=== PATIENT | male | born 1970 | race Caucasian/White ===

== ENCOUNTER 2018-10-07 16:13 | Emergency (ER) | payer BC, OTHER ==
--- NOTE | 2018-10-07 16:16 | PDOC ---
History of Present Illness - General History Source: Patient Exam Limitations: No Limitations - History of Present Illness Initial Comments: 10/07/18 17:59 48 yo M with a hx of CAD (s/p 1x stent 2016), HTN, DM, and HLD presents to the emergency department with lower left back pain that has been ongoing for 3 days. Per the patient, he was lifting an approximate 100 lb device with another individual. Per the patient, he lifted with his back and denies lifting with his legs. He states he immediately felt a pulling sensation in his lower left back and had 10/10 pain. He took naproxen yesterday that did not relieve his pain. Denies the following: fever, chills, SOB, chest pain, nausea, vomiting, diarrhea, abdominal pain, visual disturbance, dysuria, hematuria, diarrhea, and leg pain/swelling. Allergies: NKDA Shx: None <Cristobal Corcoran - Last Filed: 10/07/18 17:57> <Tequila Ba - Last Filed: 10/07/18 18:45> - General Chief Complaint: Injury Stated Complaint: LEFT SIDED BACK PAIN Time Seen by Provider: 10/07/18 16:14 Past History - Past Medical History Anemia: No Asthma: No Cancer: No Cardiac Disorders: Yes ([place]) CVA: No COPD: No CHF: No Dementia: No Diabetes: Yes GI Disorders: Yes (HX OF COLON POLYP) Disorders: No HTN: No Hypercholesterolemia: Yes Liver Disease: No Seizures: No Thyroid Disease: No - Surgical History Abdominal Surgery: No Appendectomy: No Cardiac Surgery: Yes (CARDIAC STENT X1) Cholecystectomy: No Lung Surgery: No Neurologic Surgery: No Orthopedic Surgery: Yes (LT KNEE WITH TORN MENISCUS) - Suicide/Smoking/Psychosocial Hx Smoking History: Former smoker Have you smoked in the past 12 months: No Number of Cigarettes Smoked Daily: 2 If you are a former smoker, when did you quit?: 7 Hx Alcohol Use: Yes (DAILY WITH WINE) Drug/Substance Use Hx: No Substance Use Type: None <Cristobal Corcoran - Last Filed: 10/07/18 17:57> <Tequila Ba - Last Filed: 10/07/18 18:45> - Past Medical History Allergies/Adverse Reactions: Allergies Allergy/AdvReac Type Severity Reaction Status Date / Time No Known Allergies Allergy Verified 10/07/18 16:14 Home Medications: Ambulatory Orders Aspirin Coated [Ecotrin] 81 mg PO DAILY 12/04/11 Docosahexanoic Acid/Epa [Fish Oil Softgel] 1 each PO 12/04/11 Enalapril Maleate [Vasotec] 2.5 mg PO DAILY 12/04/11 Insulin (Levemir) [Levemir Flexpen] 20 units SQ DAILY 12/04/11 Insulin (Novolog) [Novolog Flexpen] 5 units SQ AC 12/04/11 Milk Thistle 240 mg PO DAILY 12/04/11 Omeprazole [Prilosec (RX)] 20 mg PO DAILY 12/04/11 Parsley/Garlic [Garlic & Parsley Softgel] 1 each PO DAILY 12/04/11 Vitamin B Complex 1 each PO DAILY 12/04/11 Review of Systems - Review of Systems Able to Perform ROS?: Yes Is the patient limited Syriac proficient: No Constitutional: No: Chills, Diaphoresis, Fever, Weakness HEENTM: No: Eye Pain, Ear Pain, Nose Pain, Throat Pain, Mouth Pain Respiratory: No: Cough, Shortness of Breath, Hemoptysis Cardiac (ROS): No: Chest Pain, Lightheadedness, Palpitations, Syncope, Chest Tightness ABD/GI: No: Abdominal Distended, Constipated, Diarrhea, Nausea, Rectal Bleeding , Vomiting, Tarry Stools : No: Burning, Dysuria, Hematuria, Incontinence Musculoskeletal: Yes: Back Pain. No: Joint Pain, Neck Pain Integumentary: No: Bruising, Erythema, Rash Neurological: No: Headache, Numbness, Tingling, Tremors Psychiatric: No: Change in Appetite Endocrine: No: Unexplained Weight Gain Hematologic/Lymphatic: No: Anemia <BacontonCristobal - Last Filed: 10/07/18 17:57> *Physical Exam - Physical Exam General Appearance: Yes: Nourished, Appropriately Dressed. No: Apparent Distress, Intoxicated HEENT: positive: EOMI, BING, Normal Voice, Symmetrical, Pharynx Normal, Hearing Grossly Normal. negative: Pale Conjunctivae, Scleral Icterus (R), Scleral Icterus (L), Muffled/Hoarse voice, Pharyngeal Erythema, Tonsillar Exudate, Tonsillar Erythema, Nasal Congestion, Rhinorrhea, Excessive drooling Neck: positive: Trachea midline, Supple. negative: Tender, Lymphadenopathy (R) , Lymphadenopathy (L), Tender lateral, Tender midline Respiratory/Chest: positive: Lungs Clear, Normal Breath Sounds. negative: Chest Tender, Respiratory Distress, Accessory Muscle Use, Crackles, Rales, Rhonchi, Stridor, Wheezing Cardiovascular: positive: Regular Rhythm, Regular Rate, S1, S2. negative: Systolic Murmur Gastrointestinal/Abdominal: positive: Normal Bowel Sounds, Flat, Soft. negative : Tender, Distended, Guarding, Rebound Lymphatic: negative: Adenopathy Musculoskeletal: positive: Normal Inspection, Other (tenderness to palpation in the left lumbar paraspinal region). negative: CVA Tenderness, Vertebral Tenderness Extremity: positive: Normal Capillary Refill, Normal Inspection, Normal Range of Motion. negative: Tender, Swelling, Calf Tenderness Integumentary: positive: Normal Color, Dry, Warm. 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 negative: EOM Palsy, Facial Droop , Numbness, Sensory Deficit <Cristobal Corcoran - Last Filed: 10/07/18 17:57> - Vital Signs Last Vital Signs Temp Pulse Resp BP Pulse Ox 98.1 F 62 18 155/95 100 10/07/18 16:13 10/07/18 16:13 10/07/18 16:13 10/07/18 16:13 10/07/18 16:13 <Tequila Ba - Last Filed: 10/07/18 18:45> ED Treatment Course - Medications Given in the ED: ED Medications Discontinued Medications Generic Name Dose Route Start Last Admin Trade Name Sagarq PRN Reason Stop Dose Admin Acetaminophen 1,000 mg 10/07/18 17:54 10/07/18 17:59 Tylenol - PO 10/07/18 17:55 1,000 mg ONCE ONE Administration Cyclobenzaprine HCl 10 mg 10/07/18 16:45 10/07/18 17:11 Cyclobenzaprine Hcl PO 10/07/18 16:46 10 mg ONCE ONE Administration Ketorolac Tromethamine 30 mg 10/07/18 16:45 10/07/18 17:15 Toradol Injection - IM 10/07/18 16:46 30 mg ONCE ONE Administration Lidocaine 1 patch 10/07/18 17:54 10/07/18 18:01 Lidoderm Patch - TP 10/07/18 17:55 1 patch ONCE ONE Administration <Tequila Ba - Last Filed: 10/07/18 18:45> Medical Decision Making - Medical Decision Making 10/07/18 18:10 48 yo M with a hx of CAD (s/p 1x stent 2016), HTN, DM, and HLD presents to the emergency department with lower left back pain that has been ongoing for 3 days. Initial vitals; Initial Vital Signs Temp Pulse Resp BP Pulse Ox 98.1 F 62 18 155/95 100 10/07/18 16:13 10/07/18 16:13 10/07/18 16:13 10/07/18 16:13 10/07/18 16:13 Work up: likely msk strain. neurological exam within normal limits. will provide toradol 30 mg, flexeril 10 mg, lidoderm patch, and tylenol 1000 mg. Likely to be discharged. patient is ambulatory throughout the department. Dispo: Discharge <Cristobal Corcoran - Last Filed: 10/07/18 17:57> *DC/Admit/Observation/Transfer <Cristobal Corcoran - Last Filed: 10/07/18 17:57> <Tequila Ba - Last Filed: 10/07/18 18:45> Diagnosis at time of Disposition: Back pain, Sciatica, Muscle strain - Discharge Dispostion Disposition: HOME Condition at time of disposition: Stable - Referrals Referrals: Klever Jolley MD [Primary Care Provider] - - Patient Instructions Printed Discharge Instructions: DI for Low Back Pain, DI for Back Pain With Sciatica Additional Instructions: You were seen in the emergency department for the evaluation of your back pain. Please take tylenol and ibuprofen as directed on the label for pain control. please see your primary medical doctor within 1 week after discharge. please return to the emergency department if you have worsening pain or new concerning symptoms such as loss of sensation, loss of ability to walk, and inability to urinate or defecate. Thank you. - Post Discharge Activity Forms/Work/School Notes: Back to Work
[2018-10-07 16:41] VITALS: BP 155/95; PULSE 62; TEMP 98.1; BMI 29.2
--- NOTE | 2018-10-07 16:41 | PDOC ---
Attending Attestation - Resident Resident Name: Cristobal Corcoran - ED Attending Attestation I have performed the following: I have examined & evaluated the patient, The case was reviewed & discussed with the resident, I agree w/resident's findings & plan, Exceptions are as noted - HPI HPI: 10/07/18 16:39 48yo M hx DM, CAD s/p stent 2016, HTN, HL presents to the ED with sudden onset L lower pain since Sunday 2pm. Pt was at work at [employer], was lifting 100lb device when he had sudden onset pain to L lower back. Pain is worse with walking , states at times when he walks, the pain shoots down his buttocks to the back of his L thigh. Took naproxen yesterday withi minimal releif. Denies trauma or falls. Denies other injury. Denies weakness/numbness in LE. Denies recent stool/ urine incontinence or retention. Able to feel toilet paper when he wipes. Otherwise, denies fevers, chills, headache, cp, sob, abd pain, rashes, LE edema. - Physicial Exam PE: 10/07/18 17:38 GENERAL: Awake, alert, and fully oriented, in no acute distress HEAD: No signs of trauma EYES: PERRLA, EOMI, sclera anicteric, conjunctiva clear ENT: Auricles normal inspection, hearing grossly normal, nares patent, oropharynx clear without exudates. Moist mucosa NECK: Normal ROM, supple, no lymphadenopathy, JVD, or masses LUNGS: Breath sounds equal, clear to auscultation bilaterally. No wheezes, and no crackles HEART: Regular rate and rhythm, normal S1 and S2, no murmurs, rubs or gallops ABDOMEN: Soft, nontender, normoactive bowel sounds. No guarding, no rebound. No masses EXTREMITIES: Normal range of motion, no edema. No clubbing or cyanosis. No cords, erythema, or tenderness BACK: No midline cervical, thoracic, or lumbar ttp. +L lumbar paraspinal ttp. NEUROLOGICAL: Normal speech, cranial nerves intact, 5/5 strength in all 4 extremities, normal sensation to light touch in all 4 extremities, normal cerebellar exam, normal gait, normal reflexes and tone SKIN: Warm, Dry, normal turgor, no rashes or lesions noted. - Medical Decision Making 10/07/18 17:39 48yo M prsents to the ED with L lumbar pain after lifting a heavy object 2 days ago Pt is neuro intact, no red flag sxs of saddle anesthesia, retention/incontinence Likely muscular strain and sciatica No need for imaging at this time as no midline spinal pain, direct trauma, or neuro deficits Plan for symptom control, reassess 10/07/18 18:40 Pt feeling better, ambulating in ED with steady gait He is clinically stable for DC home I discussed the physical exam findings, ancillary test results and final diagnoses with the patient. I answered all of the patient's questions. The patient was satisfied with the care received and felt comfortable with the discharge plan and treatment plan. The patient will call their primary care physician within 24 hours to arrange follow-up and will return to the Emergency Department with any new, persistent or worsening symptoms.
[2018-10-07] MEDS ORDERED: KETOROLAC TROMETHAMINE 30 MG/1 ML VIAL IM ONE (16:45)
[2018-10-07] MEDS ORDERED: CYCLOBENZAPRINE HCL 5 MG TABLET PO ONE (16:45)
[2018-10-07] MEDS ORDERED: CYCLOBENZAPRINE HCL 10 MG TABLET (FP) ONE (17:10)
[2018-10-07] MEDS ORDERED: KETOROLAC TROMETHAMINE 30 MG/1 ML VIAL ONE (17:10)
[2018-10-07] MEDS ORDERED: ACETAMINOPHEN 500 MG TABLET (FP) PO ONE (17:54)
[2018-10-07] MEDS ORDERED: LIDOCAINE 5% TOPICAL PATCH TP ONE (17:54)
[2018-10-07] MEDS ORDERED: ACETAMINOPHEN 500 MG TABLET (FP) ONE (17:57)
[2018-10-07] MEDS ORDERED: LIDOCAINE 5% TOPICAL PATCH ONE (17:58)
[2018-10-07] MEDS ORDERED: LIDOCAINE PATCH REMOVAL MC SCH (22:00)
== END 2018-10-07 18:55 | disposition home or self-care (01) ==
LOC: FER 16:13
PROC: 3E0233Z Introduction of Anti-inflammatory into Muscle, Percutaneous Approach (ICD-10-PCS; principal; 2018-10-07)
DX: M54.9 Dorsalgia, unspecified (principal); M54.30 Sciatica, unspecified side; S39.012A Strain of muscle, fascia and tendon of lower back, initial encounter; X58.XXXA Exposure to other specified factors, initial encounter; Y93.89 Activity, other specified; Y92.89 Other specified places as the place of occurrence of the external cause; I25.10 Atherosclerotic heart disease of native coronary artery without angina pectoris; I10 Essential (primary) hypertension; E11.9 Type 2 diabetes mellitus without complications; E78.5 Hyperlipidemia, unspecified
CPT/HCPCS: 99282-25

== ENCOUNTER 2019-01-02 23:46 | Emergency (ER) | payer SELFPAY ==
[2019-01-02 23:59] VITALS: BP 142/97; PULSE 90; TEMP 98.1; BMI 29.1
--- NOTE | 2019-01-03 00:04 | PDOC ---
History of Present Illness - General Chief Complaint: Eye Problem Stated Complaint: RT EYE REDNESS Time Seen by Provider: 01/03/19 00:00 History Source: Patient Exam Limitations: No Limitations - History of Present Illness Initial Comments: 01/03/19 00:01 This is a 48-year-old male who comes in complaining of acute onset of redness in the conjunctival area of his eye. Patient denies any trauma or injury to the eye. Patient denies any pain or change in his vision patient denies any other complaints. Allergies: as per nursing notes Past Medical History: none Social history: Lives with family. No smoking. No alcohol. No illicit drugs. Surgical history: None General: No fevers or chills, no weakness, no weight loss HEENT: No change in vision. No sore throat,. No ear pain, redness right eye CardioVascular: no chest discomfort. No shortness of breath Respiratory:No cough, or wheezing. Gastrointestinal: no nausea, vomiting, diarrhea or constipation, No rectal bleeding Genitourinary: No dysuria, hematuria, or frequency Musculoskeletal: No joint or muscle pain or swelling Neurologic: No headache, vertigo, dizziness or loss of consciousness Psychiatric: nor depression Skin: No rashes or easy bruising Endocrine: no increased thirst or abnormal weight change Allergic: no skin or latex allergy All other systems reviewed and normal GENERAL: The patient is awake, alert, and fully oriented, in no acute distress. HEAD: Normal with no signs of trauma. EYES: Pupils equal, round and reactive to light, extraocular movements intact, sclera anicteric, there is a sub-conjunctival hemorrhage of the right eye. EXTREMITIES:atraumatic, Normal range of motion, no edema. NEUROLOGICAL: Normal speech, normal gait. PSYCH: Normal mood, normal affect. SKIN: Warm, Dry, normal turgor, no rashes or lesions noted. This is a 48-year-old male with a spontaneous conjunctival hemorrhage of the right eye. Patient was reassured that the condition is benign and discharged home. Past History - Past Medical History Allergies/Adverse Reactions: Allergies Allergy/AdvReac Type Severity Reaction Status Date / Time No Known Allergies Allergy Verified 10/07/18 16:14 Home Medications: Ambulatory Orders Aspirin [Aspirin EC] 81 mg PO DAILY 10/07/18 Atorvastatin Ca [Lipitor] 40 mg PO HS 10/07/18 Enalapril Maleate [Vasotec -] 10 mg PO DAILY 10/07/18 Insulin Degludec [Tresiba] 50 unit SQ AM 10/07/18 Insulin Lispro [Humalog] unit SQ TID 10/07/18 Metoprolol Succinate [Toprol Xl] 50 mg PO DAILY 10/07/18 Montelukast Sodium [Singulair] 10 mg PO DAILY 10/07/18 Ranitidine HCl [Zantac] 150 mg PO BID 10/07/18 Ticagrelor [Brilinta] 90 mg PO BID 10/07/18 Anemia: No Asthma: No Cancer: No Cardiac Disorders: Yes ([place]) CVA: No COPD: No CHF: No Dementia: No Diabetes: Yes GI Disorders: Yes (HX OF COLON POLYP) Disorders: No HTN: No Hypercholesterolemia: Yes Liver Disease: No Seizures: No Thyroid Disease: No - Surgical History Abdominal Surgery: No Appendectomy: No Cardiac Surgery: Yes (CARDIAC STENT X1) Cholecystectomy: No Lung Surgery: No Neurologic Surgery: No Orthopedic Surgery: Yes (LT KNEE WITH TORN MENISCUS) - Psycho Social/Smoking Cessation Hx Smoking History: Never smoked Have you smoked in the past 12 months: No Number of Cigarettes Smoked Daily: 2 If you are a former smoker, when did you quit?: 7 Hx Alcohol Use: Yes (DAILY WITH WINE) Drug/Substance Use Hx: No Substance Use Type: None *Physical Exam - Vital Signs Last Vital Signs Temp Pulse Resp BP Pulse Ox 98.1 F 90 16 142/97 98 01/02/19 23:47 01/02/19 23:47 01/02/19 23:47 01/02/19 23:47 01/02/19 23:47 Discharge - Discharge Information Problems reviewed: Yes Clinical Impression/Diagnosis: Subconjunctival hemorrhage of right eye Condition: Stable Disposition: HOME - Admission No - Follow up/Referral Referrals: Klever Jolley MD [Primary Care Provider] - - Patient Discharge Instructions Additional Instructions: The condition you have is benign and will resolve on its own without any additional intervention. Return to the emergency department immediately with ANY new, persistent or worsening symptoms. Continue any medications as previously prescribed by your physician. You should follow up with your primary doctor as soon as possible regarding today's emergency department visit. . Please make sure your doctor reviews the results of your emergency evaluation. Thank you for coming to the Emergency Department today for your care. It was a pleasure to see you today. Please note that your evaluation is INCOMPLETE until you follow-up with your doctor. - Post Discharge Activity
== END 2019-01-03 00:08 | disposition home or self-care (01) ==
LOC: FER 23:46
DX: H11.31 Conjunctival hemorrhage, right eye (principal); Z87.891 Personal history of nicotine dependence; E78.00 Pure hypercholesterolemia, unspecified; Z95.5 Presence of coronary angioplasty implant and graft; E11.9 Type 2 diabetes mellitus without complications; Z79.4 Long term (current) use of insulin; I25.2 Old myocardial infarction
CPT/HCPCS: 99281-25